=== PATIENT | female | born 1995 | race Caucasian/White ===

== ENCOUNTER 2025-05-23 09:34 | Day surgery (SDC) | payer SELFPAY ==
[2025-05-23 11:03] VITALS: BP 105/73; TEMP 97.8
== END 2025-05-23 13:49 | disposition home or self-care (01) ==
LOC: ONC/OP 09:34
PROVIDERS: ATTEND Student in an Organized Health Care Education/Training Program
DX: K51.90 Ulcerative colitis, unspecified, without complications (principal)
CPT/HCPCS: 96413; 96415; J2327; J7050

== ENCOUNTER 2025-06-20 09:41 | Day surgery (SDC) | payer SELFPAY ==
[2025-06-20 10:38] VITALS: BP 114/65; TEMP 98.3
== END 2025-06-20 13:33 | disposition home or self-care (01) ==
LOC: ONC/OP 09:41
PROVIDERS: ATTEND Student in an Organized Health Care Education/Training Program
DX: K51.90 Ulcerative colitis, unspecified, without complications (principal)
CPT/HCPCS: 96413; 96415; J2327; J7050